=== PATIENT | male | born 1950 | race Caucasian/White ===

== ENCOUNTER 2023-03-25 14:02 | Day surgery (SDC) | payer MEDICARE, OTHER ==
[2023-03-22 09:32] LABS: BASOPHILS % (AUTO) 0.8 % (0-1); EOSINOPHILS # (AUTO) 0.2 X10'3 (0-0.9); EOSINOPHILS % (AUTO) 2.7 % (0-6); HEMATOCRIT 38.9 % (42.0-52.0); HEMOGLOBIN 13.3 g/dl (14.0-17.9); LYMPHOCYTES # (AUTO) 1.1 X10'3 (1.1-4.8); LYMPHOCYTES % (AUTO) 16.9 % (21-51); MEAN CORPUSCULAR HEMOGLOBIN 28.9 PG (27.0-31.0); MEAN CORPUSCULAR HGB CONC 34.1 g/dL (33.0-36.5); MEAN CORPUSCULAR VOLUME 84.8 FL (78-98); MEAN PLATELET VOLUME 6.1 FL (7.4-10.4); MONOCYTES # (AUTO) 0.5 X10'3 (0-0.9); MONOCYTES % (AUTO) 7.3 % (2-12); NEUTROPHILS # (AUTO) 4.6 X10'3 (1.8-7.7); NEUTROPHILS % (AUTO) 72.3 % (42-75); PLATELET COUNT 264 X10'3 (140-440); RED BLOOD COUNT 4.59 X10'6 (4.70-6.10); RED CELL DISTRIBUTION WIDTH 14.7 % (11.5-14.5); WHITE BLOOD COUNT 6.3 X10'3 (4.5-11.0)
[2023-03-22 09:41] LABS: ALBUMIN 3.5 G/DL (3.4-5.0); ANION GAP 5 (8-16); BLOOD UREA NITROGEN 23 MG/DL (7-18); BUN/CREATININE RATIO 17.4 (10.0-20.0); CALCIUM 8.8 MG/DL (8.5-10.1); CHLORIDE 106 MMOL/L (99-107); CREATININE 1.32 MG/DL (0.60-1.10); GLUCOSE 104 MG/DL (70-104); POTASSIUM 4.2 MMOL/L (3.5-5.1); SODIUM 139 MMOL/L (135-145); TOTAL CARBON DIOXIDE 27.7 MMOL/L (24-32); eGFR 53 ML/MIN
[2023-03-22 09:45] LABS: APTT 32 SECONDS (22-32); PROTHROMBIN TIME 10.8 SECONDS (9.0-12.0)
[2023-03-25] VITALS (7 sets, daily range): BP systolic 137–172; BP diastolic 83–92; PULSE 53–61; RESP 16; TEMP 98.4; O2SAT 93–98
[~2023-03-25] VITALS: Ht 175.3 cm; Wt 92.8 kg
[~2023-03-25 14:02] MED LIST: NO HOME MEDS
[2023-03-25] MEDS ORDERED: LORazepam 0.5 MG tablet PO PRN (14:25)
[2023-03-25] MEDS ORDERED: diphenhydrAMINE 25mg capsule PO PRN (14:25)
[2023-03-25] MEDS ORDERED: ASPI81TA52 PO (14:37)
[2023-03-25] MEDS ORDERED: LEVO75TA PO (14:37)
[2023-03-25] MEDS ORDERED: AMLO-307 PO (14:37)
[2023-03-25] MEDS ORDERED: CLOP75TA34 PO (14:37)
[2023-03-25] MEDS ORDERED: iohexol 350MG/ML 100ml bottle IV ONE (15:33)
[2023-03-25] MEDS ORDERED: phenylephrine 10mg/ml inj. -priapism dosing ONE (15:33)
[2023-03-25] MEDS ORDERED: DOPamine 400mg/D5W 250ml 0 ML IV ONE (15:33)
[2023-03-25] MEDS ORDERED: heparin 1,000unit/ml 10ml vial 0 ML ONE (15:33)
[2023-03-25] MEDS ORDERED: atropine 0.1mg/ml 10ml syringe ONE (15:33)
[2023-03-25] MEDS ORDERED: LIDOcaine 1% 30ml preserv. free vial ONE (15:33)
[2023-03-25] MEDS ORDERED: normal saline 1000ml 1,000 ML IV SCH (16:35)
[2023-03-25] MEDS ORDERED: HYDROcodone/acetaminophen 10/325mg tab PO PRN (17:55)
[2023-03-25] MEDS ORDERED: HYDROcodone/acetaminophen 5mg/325mg tablet PO PRN (17:55)
== END 2023-03-25 19:09 | disposition home or self-care (01) ==
LOC: SSTAY O 14:02
PROVIDERS: ATTEND Student in an Organized Health Care Education/Training Program
DX: I65.23 Occlusion and stenosis of bilateral carotid arteries (principal); G45.3 Amaurosis fugax; I10 Essential (primary) hypertension; Z85.21 Personal history of malignant neoplasm of larynx; Z79.01 Long term (current) use of anticoagulants; Z79.899 Other long term (current) drug therapy; Z79.82 Long term (current) use of aspirin
CPT/HCPCS: 36223; 36415; 80048; 85025; 85610; 85730; 93005; J1644; J2370; J3490; J7030; Q9967; 36222; A6258; C1760; C1894; J0461; J1265